=== PATIENT | female | born 1970 | race Caucasian/White ===

== ENCOUNTER 2017-12-25 08:10 | Emergency (ER) | payer BC ==
[2017-12-25 08:24] VITALS: BP 122/82
--- NOTE | 2017-12-25 08:37 | ED ---
Throat Pain/Nasal Congestion - HPI Summary HPI Summary: 47 yr old female with the complaint of sinus pressure frontal and maxillary, post nasal drip and cough. Onset a few days ago. Denies fever, chills. Left ear also bothering her. No other complaints. 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 - History of Current Complaint Chief Complaint: UCRespiratory Time Seen by Provider: 12/25/17 08:22 - Allergies/Home Medications Allergies/Adverse Reactions: Allergies Allergy/AdvReac Type Severity Reaction Status Date / Time aspirin Allergy Hives Verified 12/25/17 08:15 PMH/Surg Hx/FS Hx/Imm Hx Respiratory History: Reports: Hx Asthma - Surgical History Surgery Procedure, Year, and Place: APPY. ablation Infectious Disease History: No Infectious Disease History: Denies: Traveled Outside the [place] in Last 30 Days - Family History Known Family History: Positive: Hypertension - Social History Occupation: Employed Full-time Lives: With Family Alcohol Use: None Substance Use Type: Reports: None Smoking Status (MU): Former Smoker Review of Systems Constitutional: Negative Positive: Ear Ache, Nasal Discharge Positive: Cough All Other Systems Reviewed And Are Negative: Yes Physical Exam Triage Information Reviewed: Yes Vital Signs On Initial Exam: Initial Vitals Temp Pulse Resp BP Pulse Ox 99 F 78 15 122/82 99 12/25/17 08:21 12/25/17 08:21 12/25/17 08:21 12/25/17 08:21 12/25/17 08:21 Vital Signs Reviewed: Yes Appearance: Positive: Well-Appearing, No Pain Distress Skin: Positive: Warm Head/Face: Positive: Normal Head/Face Inspection Eyes: Positive: EOMI ENT: Positive: Pharyngeal erythema, Nasal congestion, TMs normal, Sinus tenderness. Negative: Muffled voice, Hoarse voice Neck: Positive: Nontender Respiratory/Lung Sounds: Positive: Clear to Auscultation, Breath Sounds Present Cardiovascular: Positive: RRR. Negative: Murmur Abdomen Description: Positive: Nontender Musculoskeletal: Positive: Strength/ROM Intact Neurological: Positive: Sensory/Motor Intact, Alert, Oriented to Person Place, Time, CN Intact II-III Psychiatric: Positive: Normal - Chanelle Coma Scale Best Eye Response: 4 - Spontaneous Best Motor Response: 6 - Obeys Commands Best Verbal Response: 5 - Oriented Coma Scale Total: 15 Diagnostics - Vital Signs Vital Signs Temp Pulse Resp BP Pulse Ox 12/25/17 08:21 99 F 78 15 122/82 99 - Laboratory Lab Statement: Any lab studies that have been ordered have been reviewed, and results considered in the medical decision making process. EENT Course/Dx - Course Course Of Treatment: 47 yr old with sinusitis. Rx Augmentin. - Diagnoses Provider Diagnoses: Sinusitis Discharge - Sign-Out/Discharge Documenting (check all that apply): Discharge/Admit/Transfer - Discharge Plan Condition: Good Disposition: HOME Prescriptions: Amoxicillin/Clavulanate TAB* [Augmentin TAB 875*] 875 mg PO BID #20 tab Patient Education Materials: Sinusitis (ED) Forms: *Work Release Referrals: Joi Buckner MD [Primary Care Provider] - 2 Days - Billing Disposition and Condition Condition: GOOD Disposition: HOME
== END 2017-12-25 08:43 | disposition home or self-care (01) ==
LOC: UCCORT 08:10
DX: J32.9 Chronic sinusitis, unspecified (principal); Z87.891 Personal history of nicotine dependence; Z88.6 Allergy status to analgesic agent
CPT/HCPCS: 99212; G0463

== ENCOUNTER 2018-08-14 11:11 | Emergency (ER) | payer BC ==
[2018-08-14 11:25] VITALS: BP 141/98
[2018-08-14] MEDS ORDERED: Ipratropium 0.5MG/2.5ML NEB* 0.5 MG/2.5 ML NEB.SOLN INH ONE (12:11)
[2018-08-14] MEDS ORDERED: Albuterol 2.5 MG/3 ML NEB.SOL* (0.083%) INH ONE (12:11)
--- NOTE | 2018-08-14 12:12 | UC ---
Respiratory Complaint HPI - HPI Summary HPI Summary: The patient is a 48-year-old female with a 6 day history of progressively worsening nasal congestion cough chest tightness and wheezing.'s a history of asthma. She may be running fevers at times. - History of Current Complaint Chief Complaint: UCGeneralIllness Stated Complaint: CHEST CONGESTION Time Seen by Provider: 08/14/18 11:55 Hx Obtained From: Patient Hx Last Menstrual Period: 09/20/12 Onset/Duration: Gradual Onset, Lasting Days Timing: Constant Severity Initially: Mild Severity Currently: Moderate Pain Intensity: 6 Pain Scale Used: 0-10 Numeric Character: Cough: Productive Aggravating Factors: Exertion, Deep Breaths Alleviating Factors: Bronchodilator Associated Signs And Symptoms: Positive: Pleuritic Chest Pain, Hemoptysis, Nasal Congestion, Hoarseness, Sinus Discomfort - Allergies/Home Medications Allergies/Adverse Reactions: Allergies Allergy/AdvReac Type Severity Reaction Status Date / Time aspirin Allergy Hives Verified 12/25/17 08:15 Home Medications: Home Medications Allergy Shots 08/14/18 [History] PMH/Surg Hx/FS Hx/Imm Hx Previously Healthy: Yes Respiratory History: Asthma, Bronchitis, Pneumonia - Surgical History Surgical History: Yes Surgery Procedure, Year, and Place: APPY. ablation - Family History Known Family History: Positive: Hypertension - Social History Alcohol Use: None Substance Use Type: None Smoking Status (MU): Former Smoker When Did the Patient Quit Smoking/Using Tobacco: 27 years ago - Immunization History Most Recent Influenza Vaccination: 05/28/16 Review of Systems All Other Systems Reviewed And Are Negative: Yes Constitutional: Positive: Fever, Chills Skin: Positive: Negative Eyes: Positive: Negative ENT: Positive: Nasal Discharge, Sinus Congestion, Sinus Pain/Tenderness Respiratory: Positive: Cough Cardiovascular: Positive: Negative Gastrointestinal: Positive: Negative Genitourinary: Positive: Negative Motor: Positive: Negative Neurovascular: Positive: Negative Musculoskeletal: Positive: Myalgia Neurological: Positive: Negative Psychological: Positive: Negative Physical Exam Triage Information Reviewed: Yes Appearance: No Pain Distress, Well-Nourished, Ill-Appearing Vital Signs: Initial Vital Signs Temp 99.1 F 08/14/18 11:22 Pulse 84 08/14/18 11:22 Resp 18 08/14/18 11:22 BP 141/98 08/14/18 11:22 Pulse Ox 99 08/14/18 11:22 Vital Signs Reviewed: Yes Eyes: Positive: Conjunctiva Clear ENT: Positive: Pharyngeal erythema, Nasal congestion, Nasal drainage, TMs normal. Negative: Tonsillar swelling, Tonsillar exudate, Sinus tenderness Neck: Positive: Supple, Nontender, No Lymphadenopathy Respiratory: Positive: No respiratory distress, No accessory muscle use, Wheezing Cardiovascular: Positive: RRR, No Murmur Musculoskeletal: Positive: ROM Intact, No Edema Neurological: Positive: Alert Psychological Exam: Normal Skin Exam: Normal UC Diagnostic Evaluation - Laboratory O2 Sat by Pulse Oximetry: 99 - normal not hypoxic Diagnostic Studies Comment: influ - - Radiology Radiology Interpretation Completed By: Radiologist Summary of Radiographic Findings: nad Re-Evaluation - Re-Evaluation First Eval Re-Evaluation Time: 13:00 Change: Improved - still wheezing but better air movement Respiratory Course/Dx - Differential Dx/Diagnosis Provider Diagnosis: Acute bronchitis with bronchospasm Discharge - Sign-Out/Discharge Documenting (check all that apply): Patient Departure All imaging exams completed and their final reports reviewed: Yes - Discharge Plan Condition: Stable Disposition: HOME Prescriptions: predniSONE [Deltasone 20 MG TAB] 40 mg PO DAILY #8 tab Patient Education Materials: Bronchospasm (ED) Referrals: Joi Buckner MD [Primary Care Provider] - 3 Days (if not better) Additional Instructions: recheck for worsening symptoms use neb as directed - Billing Disposition and Condition Condition: STABLE Disposition: Home
[2018-08-14] MEDS ORDERED: predniSONE TAB* 20 MG PO ONE (12:58)
== END 2018-08-14 13:04 | disposition home or self-care (01) ==
LOC: UCCORT 11:11
DX: J20.9 Acute bronchitis, unspecified (principal); Z88.6 Allergy status to analgesic agent; Z87.891 Personal history of nicotine dependence
CPT/HCPCS: 71046; 99212; G0463; J7512

== ENCOUNTER 2019-08-08 15:57 | Emergency (ER) | payer BC ==
--- OUTSIDE RECORDS SUMMARY | 2019-08-08 17:11 | XMS REPORT | Continuity of Care Document ---
:1970 External Reference #:[id number] Author Name CA Zendejas (transmitted by agent of provider Martinez Espinoza) Address [address] [place] [address] Care Team Providers Name Role Phone Joi Buckner MD - Family Care Team Information Rn Support Services Medicine Problems Active Problems Provider Date Candidiasis of mouth DAXA Meek Onset: 09/15/2018 Uncomplicated moderate persistent Martinez Espinoza MD Onset: 02/22/2018 asthma Allergic rhinitis Martinez Espinoza MD Onset: 02/22/2018 Allergic rhinitis due to pollen Martinez Espinoza MD Onset: 02/22/2018 Social History Type Date Description Comments Sex Unknown Tobacco Use Start: Unknown End: Patient is a former smoker quit 30 years ago Unknown Smoking Status Reviewed: 08/01/19 Patient is a former smoker quit 30 years ago Allergies, Adverse Reactions, Alerts Active Allergies Reaction Severity Comments Date Aspirin 02/22/2018 Medications Active Medications SIG Qnty Indications Ordering Provider Date Benzonatate one table three 60caps J30.89 Martinez Lowery 08/01/2019 100mg times daily as MD Alexis Capsules needed for cough Prednisone 6 tablets (30 60tabs J30.89 Prakashopher A. 08/01/2019 5mg Tablets mg) by mouth MD Alexis twice a day x 5 days Mucinex take 2 tablet 60tabs J30.89 Martinez A. 08/01/2019 600mg Tablets by mouth twice MD Alexis ER 12HR a day as needed Cetirizine HCL take one tablet 30tabs Aviva Heck NP 03/10/2018 10mg by mouth every Tablets day at bedtime Mometasone Furoate instill 2 17gm J30.1 Martinez Lowery 02/22/2018 sprays into MD Alexis 50mcg/Act Suspension each nostril once daily Breo Ellipta inhale one puff 1units J30.1 opher A. 02/22/2018 once a day MD Alexis 200-25mcg/Inh Aerosol Proair HFA 2 puffs every 4 8.500gm J30.1 opher A. 02/22/2018 108(90Base) as needed MD Alexis mcg/Act Aerosol Omeprazole 1 by mouth Unknown 40mg every day Capsules DR Amitriptyline HCL 3 tabs (30 mg) Unknown 10mg Tablets Magnesium 27 Unknown 500(27Mg) mg Tablets Vitamin B-12 ER 1 by mouth Unknown 1000mcg every day Tablets ER Albuterol Sulfate 1 vial every 4h Unknown as needed (2.5mg/3ML) 0.083% Nebulizer Sumatriptan Succinate as needed. Unknown 50mg Tablets Vitamin C Unknown W/Vitamin E [id number] Capsules Centrum Silver Adult Unknown 50+ Adult 50 Tablets Medications Administered in Office Medication SIG Qnty Indications Ordering Provider Date Allergy Injection 2 Or More Martinez Espinoza MD 07/25/2019 Injection Allergy Injection 2 Or More Martinez Espinoza MD 07/13/2019 Injection Allergy Injection 2 Or More Martinez Espinoza MD 06/29/2019 Injection Allergy Injection 2 Or More Martinez Espinoza MD 06/15/2019 Injection Allergy Injection 2 Or More Martinez Espinoza MD 06/01/2019 Injection Allergy Injection 2 Or More Martinez Espinoza MD 05/18/2019 Injection Allergy Injection 2 Or More Martinez Espinoza MD 05/04/2019 Injection Allergy Injection 2 Or More Martinez Espinoza MD 04/20/2019 Injection Allergy Injection 2 Or More Martinez Espinoza MD 04/06/2019 Injection Allergy Injection 2 Or More Martinez Espinoza MD 03/23/2019 Injection Allergy Injection 2 Or More Martinez Espinoza MD 03/09/2019 Injection Allergy Injection 2 Or More Martinez Espinoza MD 02/23/2019 Injection Allergy Injection 2 Or More Martinez Espinoza MD 02/16/2019 Injection Allergy Injection 2 Or More Martinez Espinoza MD 02/09/2019 Injection Allergy Injection 2 Or More Martinez Espinoza MD 02/02/2019 Injection Allergy Injection 2 Or More Martinez Espinoza MD 01/26/2019 Injection Allergy Injection 2 Or More Martinez Espinoza MD 01/19/2019 Injection Allergy Injection 2 Or More Martinez Espinoza MD 01/12/2019 Injection Allergy Injection 2 Or More Martinez Espinoza MD 01/05/2019 Injection Allergy Injection 2 Or More Martinez Espinoza MD 12/29/2018 Injection Allergy Injection 2 Or More Martinez Espinoza MD 12/22/2018 Injection Allergy Injection 2 Or More Martinez Espinoza MD 12/15/2018 Injection Allergy Injection 2 Or More Martinez Espinoza MD 12/08/2018 Injection Allergy Injection 2 Or More Martinez Espinoza MD 12/01/2018 Injection Allergy Injection 2 Or More Martinez Espinoza MD 11/24/2018 Injection Allergy Injection 2 Or More Martinez Espinoza MD 11/17/2018 Injection Allergy Injection 2 Or More Martinez Espinoza MD 11/10/2018 Injection Allergy Injection 2 Or More Martinez Espinoza MD 11/03/2018 Injection Allergy Injection 2 Or More Martinez Espinoza MD 10/27/2018 Injection Allergy Injection 2 Or More Martinez Espinoza MD 10/20/2018 Injection Allergy Injection 2 Or More Martinez Espinoza MD 10/13/2018 Injection Allergy Injection 2 Or More Martinez Espinoza MD 10/06/2018 Injection Allergy Injection 2 Or More Martinez Espinoza MD 09/29/2018 Injection Allergy Injection 2 Or More Martinez Espinoza MD 09/22/2018 Injection Allergy Injection 2 Or More Martinez Espinoza MD 09/15/2018 Injection Allergy Injection 2 Or More Martinez Espinoza MD 09/08/2018 Injection Allergy Injection 2 Or More Martinez Espinoza MD 08/25/2018 Injection Allergy Injection 2 Or More Martinez Espinoza MD 08/04/2018 Injection Allergy Injection 2 Or More Martinez Espinoza MD 07/19/2018 Injection Allergy Injection 2 Or More Martinez Espinoza MD 06/30/2018 Injection Allergy Injection 2 Or More Martinez Espinoza MD 06/16/2018 Injection Allergy Injection 2 Or More Martinez Espinoza MD 06/02/2018 Injection Allergy Injection 2 Or More Martinez Espinoza MD 05/19/2018 Injection Allergy Injection 2 Or More Martinez Espinoza MD 05/05/2018 Injection Allergy Injection 2 Or More Martinez Espinoza MD 04/21/2018 Injection Allergy Injection 2 Or More Martinez Espinoza MD 04/07/2018 Injection Allergy Injection 2 Or More Martinez Espinoza MD 03/31/2018 Injection Allergy Injection 2 Or More Martinez Espinoza MD 03/24/2018 Injection Allergy Injection 2 Or More Martinez Espinoza MD 03/17/2018 Injection Allergy Injection 2 Or More Injection 1 03/17/2018 Injection Immunizations Description No Information Available Vital Signs Date Vital Result Comment 08/01/2019 1:02pm BP Systolic 138 mmHg BP Diastolic 88 mmHg Height 61 inches 5'1" Weight 144.00 lb BMI (Body Mass Index) 27.2 kg/m2 Heart Rate 71 /min Respiratory Rate 16 /min Body Temperature 97.5 F O2 % BldC Oximetry 99 % 03/16/2019 2:11pm BP Systolic 102 mmHg BP Diastolic 74 mmHg Height 61 inches 5'1" Weight 144.00 lb BMI (Body Mass Index) 27.2 kg/m2 Heart Rate 69 /min Respiratory Rate 16 /min Body Temperature 97.6 F O2 % BldC Oximetry 96 % Results Description No Information Available Procedures Date Code Description Status 07/25/2019 26737 Allergy Injection 2 Or More Completed 07/13/2019 84782 Allergy Injection 2 Or More Completed 06/29/2019 38073 Allergy Injection 2 Or More Completed 06/15/2019 60392 Allergy Injection 2 Or More Completed 06/01/2019 35392 Allergy Injection 2 Or More Completed 05/18/2019 98766 Allergy Injection 2 Or More Completed 05/04/2019 05179 Allergy Injection 2 Or More Completed 04/20/2019 12055 Allergy Injection 2 Or More Completed 04/06/2019 01800 Allergy Injection 2 Or More Completed 03/27/2019 14841 Allergy Antigens Single Or Multiple Completed 03/23/2019 32450 Allergy Injection 2 Or More Completed 03/16/2019 23820 Nitric Oxide Gas Determination Completed 03/16/2019 45508 Bronchodilation Responsiveness Spirometry Pre/Post Completed Bronchodil Adm 03/09/2019 34729 Allergy Injection 2 Or More Completed 02/23/2019 61596 Allergy Injection 2 Or More Completed 02/16/2019 55203 Allergy Injection 2 Or More Completed 02/09/2019 56272 Allergy Injection 2 Or More Completed 02/02/2019 52070 Allergy Injection 2 Or More Completed Medical Devices Description No Information Available Encounters Type Date Location Provider Dx Diagnosis Office Visit 08/01/2019 CA Loza J45.40 Moderate persistent 1:00p asthma, uncomplicated J30.1 Allergic rhinitis due to pollen J30.89 Other allergic rhinitis Office Visit 03/16/2019 2:30p Parmjit Lara J45.40 Moderate persistent Fenstermacher, RPA-C asthma, uncomplicated J30.1 Allergic rhinitis due to pollen J30.89 Other allergic rhinitis Assessments Date Code Description Provider 08/01/2019 J45.40 Moderate persistent asthma, CA Zendejas uncomplicated 08/01/2019 J30.1 Allergic rhinitis due to pollen CA Zendejas 08/01/2019 J30.89 Other allergic rhinitis CA Znedejas 07/25/2019 J45.40 Moderate persistent asthma, Martinez Espinoza MD uncomplicated 07/25/2019 J30.1 Allergic rhinitis due to pollen Martinez Espinoza MD 07/25/2019 J30.89 Other allergic rhinitis Martinez Espinoza MD 07/13/2019 J45.40 Moderate persistent asthma, Martinez Espinoza MD uncomplicated 07/13/2019 J30.1 Allergic rhinitis due to pollen Martinez Espinoza MD 07/13/2019 J30.89 Other allergic rhinitis Martinez Espinoza MD 06/29/2019 J45.40 Moderate persistent asthma, Martinez Espinoza MD uncomplicated 06/29/2019 J30.1 Allergic rhinitis due to pollen Martinez Espinoza MD 06/29/2019 J30.89 Other allergic rhinitis Martinez Espinoza MD 06/15/2019 J45.40 Moderate persistent asthma, Martinez Espinoza MD uncomplicated 06/15/2019 J30.1 Allergic rhinitis due to pollen Martinez Espinoza MD 06/15/2019 J30.89 Other allergic rhinitis Martinez Espinoza MD 06/01/2019 J45.40 Moderate persistent asthma, Martinez Espinoza MD uncomplicated 06/01/2019 J30.1 Allergic rhinitis due to pollen Martinez Espinoza MD 06/01/2019 J30.89 Other allergic rhinitis Martinez Espinoza MD 05/18/2019 J45.40 Moderate persistent asthma, Martinez Espinoza MD uncomplicated 05/18/2019 J30.1 Allergic rhinitis due to pollen Martinez Espinoza MD 05/18/2019 J30.89 Other allergic rhinitis Martinez Espinoza MD 05/04/2019 J45.40 Moderate persistent asthma, Martinez Espinoza MD uncomplicated 05/04/2019 J30.1 Allergic rhinitis due to pollen Martinez Espinoza MD 05/04/2019 J30.89 Other allergic rhinitis Martinez Espinoza MD 04/20/2019 J45.40 Moderate persistent asthma, Martinez Espinoza MD uncomplicated 04/20/2019 J30.1 Allergic rhinitis due to pollen Martinez Espinoza MD 04/20/2019 J30.89 Other allergic rhinitis Martinez Espinoza MD 04/06/2019 J45.40 Moderate persistent asthma, Martinez Espinoza MD uncomplicated 04/06/2019 J30.1 Allergic rhinitis due to pollen Martinez Espinoza MD 04/06/2019 J30.89 Other allergic rhinitis Martinez Espinoza MD 03/27/2019 J30.1 Allergic rhinitis due to pollen Martinez Espinoza MD 03/27/2019 J30.89 Other allergic rhinitis Mratinez Espinoza MD 03/23/2019 J45.40 Moderate persistent asthma, Martinez Espinoza MD uncomplicated 03/23/2019 J30.1 Allergic rhinitis due to pollen Martinez Espinoza MD 03/23/2019 J30.89 Other allergic rhinitis Martinez Espinoza MD 03/16/2019 J45.40 Moderate persistent asthma, DAXA Meek uncomplicated 03/16/2019 J30.1 Allergic rhinitis due to pollen Cata Avery RPA -C 03/16/2019 J30.89 Other allergic rhinitis Cata Avery, JOSÉ MIGUEL-C 03/09/2019 J45.40 Moderate persistent asthma, Martinez Espinoza MD uncomplicated 03/09/2019 J30.1 Allergic rhinitis due to pollen Martinez Espinoza MD 03/09/2019 J30.89 Other allergic rhinitis Martinez Espinoza MD 02/23/2019 J45.40 Moderate persistent asthma, Martinez Espinoza MD uncomplicated 02/23/2019 J30.1 Allergic rhinitis due to pollen Martinez Espinoza MD 02/23/2019 J30.89 Other allergic rhinitis Martinez Espinoza MD 02/16/2019 J45.40 Moderate persistent asthma, Martinez Espinoza MD uncomplicated 02/16/2019 J30.1 Allergic rhinitis due to pollen Martinez Espinoza MD 02/16/2019 J30.89 Other allergic rhinitis Martinez Espinoza MD 02/09/2019 J45.40 Moderate persistent asthma, Martinez Espinoza MD uncomplicated 02/09/2019 J30.1 Allergic rhinitis due to pollen Martinez Espinoza MD 02/09/2019 J30.89 Other allergic rhinitis Martinez Espinoza MD 02/02/2019 J45.40 Moderate persistent asthma, Martinez Espinoza MD uncomplicated 02/02/2019 J30.1 Allergic rhinitis due to pollen Martinez Espinoza MD 02/02/2019 J30.89 Other allergic rhinitis Martinez Espinoza MD Plan of Treatment Future Appointment(s):08/03/2019 1:55 pm - Injection 1 at [facility]/16/2020 2 :00 pm - Cata Avery RPA-C at [facility]22/03/2019 - CA ZendejasJ45.40 Moderate persistent asthma, [id number] Allergic rhinitis due to pusuolM45.89 Other allergic rhinitisNew Medication:Benzonatate 100 mg - one table three times daily as needed for coughPrednisone 5 mg - 6 tablets (30 mg) by mouth twice a day x 5 daysMucinex 600 mg - take 2 tablet by mouth twice a day as neededComments:Patient has a URI. Patient to take prednisone as prescribed for 5 days. Patient to use benzonatate, as prescribed, for breakthrough coughing. Patient can also use warm salt water gargles to help sore throat and also decrease cough by decreasing postnasal drip. Patient can also use honey in traditional medicine tea such as 'Throat Coat' to help relieve coughing. Patient to use Mucinex, as needed,to help thin and facilitate removal of thick mucus. Patient to consume plenty of clear fluids and rest. Patient will contact this office if not feeling better in 5 days for further instructions. Patient to continue her allergy immunotherapy injections when feeling better. Functional Status Description No Information Available Mental Status Description No Information Available Referrals Description No Information Available
[2019-08-08] MEDS ORDERED: Acetaminophen TAB* 325 MG PO ONE (17:19)
[2019-08-08 17:23] VITALS: BP 113/89
--- NOTE | 2019-08-08 17:57 | UC ---
Respiratory Complaint HPI - HPI Summary HPI Summary: 49yo female presenting with sore throat, nasal congestion, and nonproductive mild cough x7 days. Patient states she was seen by pcp last week and they gave prednisone and tessalon perles for cough. Patient states no resolution of symptoms and since wednesday has worsening sinus pain, "face pressure," headache, and L ear pain. Patient also notes feeling warm, and notes bodyaches. Denies SOB and wheezing. Denies n/v/d and abdominal pain. Denies neck pain. Does note she has been exposed to strep throat and the flu at work. Notes decreased appetite but maintaining fluids. Has not taken anything for fever or pain relief today. - History of Current Complaint Chief Complaint: UCRespiratory Stated Complaint: HEADACHE,SORE THROAT, BODY ACHES Hx Obtained From: Patient Hx Last Menstrual Period: uterine ablation Onset/Duration: Gradual Onset, Lasting Days Pain Intensity: 8 - Allergies/Home Medications Allergies/Adverse Reactions: Allergies Allergy/AdvReac Type Severity Reaction Status Date / Time aspirin Allergy Hives Verified 08/08/19 17:10 Home Medications: Home Medications Benzonatate CAP* [Tessalon 100 MG CAP*] 100 mg PO TID PRN 08/08/19 [History Confirmed 08/08/19] guaiFENesin ER TAB [Mucinex*] 600 mg PO BID PRN 08/08/19 [History Confirmed 06/17] PMH/Surg Hx/FS Hx/Imm Hx - Surgical History Surgical History: Yes Surgery Procedure, Year, and Place: APPY. ablation - Family History Known Family History: Positive: Hypertension - Social History Alcohol Use: Rare Substance Use Type: None Smoking Status (MU): Former Smoker When Did the Patient Quit Smoking/Using Tobacco: 27 years ago - Immunization History Most Recent Influenza Vaccination: 05/28/16 Review of Systems All Other Systems Reviewed And Are Negative: Yes Constitutional: Positive: Fever, Fatigue ENT: Positive: Sore Throat, Ear Ache - L ear pain, Sinus Congestion, Sinus Pain/ Tenderness Respiratory: Positive: Cough - mild nonproductive. Negative: Shortness Of Breath Cardiovascular: Positive: Negative. Negative: Chest Pain Gastrointestinal: Positive: Negative. Negative: Abdominal Pain, Vomiting, Nausea Musculoskeletal: Positive: Myalgia - generalized muscle aches Neurological: Positive: Headache - not worst Physical Exam Triage Information Reviewed: Yes Appearance: No Pain Distress, Well-Nourished, Ill-Appearing - cheeks flushed, tearful, lying on the table Vital Signs: Initial Vital Signs Temp 101 F 08/08/19 17:15 Pulse 90 08/08/19 17:15 Resp 18 08/08/19 17:15 BP 113/89 08/08/19 17:15 Pulse Ox 97 08/08/19 17:15 Lab Results 08/08/19 08/08/19 Range/Units 18:20 18:22 Influenza A (Rapid) Negative (Negative) Influenza B (Rapid) Negative (Negative) Group A Strep Rapid Negative (Negative) Vital Signs Reviewed: Yes Eyes: Positive: Conjunctiva Clear ENT: Positive: Hearing grossly normal, Pharyngeal erythema, Nasal congestion, Nasal drainage, TMs normal, Sinus tenderness - pain with palpation of maxillary sinuses, Uvula midline. Negative: Tonsillar swelling, Tonsillar exudate, Trismus, Muffled voice, Hoarse voice Neck exam: Normal Neck: Positive: Supple, Nontender, No Lymphadenopathy. Negative: Nuchal Rigidity Respiratory Exam: Normal Respiratory: Positive: Lungs clear, Normal breath sounds, No respiratory distress, No accessory muscle use. Negative: Crackles, Rhonchi, Stridor, Wheezing Cardiovascular Exam: Normal Cardiovascular: Positive: RRR Neurological Exam: Other - negative brudzinki and kernig signs Neurological: Positive: Alert Psychological: Positive: Age Appropriate Behavior Respiratory Course/Dx - Course Course Of Treatment: Negative rapid strep and flu negative. Patient received tylenol here for fever and pain relief. I treated for sinusitis with augmentin. Educated on viral illness and importance of rest and maintaining hydration. Instructed to continue with ibuprofen and tylenol for fever and pain relief. Instructed to follow up with pcp if symptoms persist longer than 7 days or go to ED with any new or worsening symptoms. Patient voiced understanding and agreed with treatment plan. - Differential Dx/Diagnosis Provider Diagnosis: Flu-like symptoms, Acute bacterial sinusitis Discharge ED - Sign-Out/Discharge Documenting (check all that apply): Patient Departure All imaging exams completed and their final reports reviewed: No Studies - Discharge Plan Condition: Stable Disposition: HOME Prescriptions: Amoxicillin/Clavulanate TAB* [Augmentin TAB 875*] 875 mg PO BID #14 tab Patient Education Materials: Sinusitis (ED), Viral Syndrome (ED) Referrals: Joi Buckner MD [Primary Care Provider] - If Needed Additional Instructions: Your strep and flu tests were negative today. Take Augmentin as prescribed for treatment of your sinus infection. Continue with ibuprofen and/or tylenol as directed for fever and pain relief. Increase your fluid intake and get plenty of rest. Follow up with your primary care provider if your symptoms do not resolve within 7 days. Go to the emergency room with any new or worsening symptoms, including fever higher than 103. - Billing Disposition and Condition Condition: STABLE Disposition: Home
[2019-08-08 18:33] LABS: Influenza A Molecular NEGATIVE (Negative); Influenza B Molecular NEGATIVE (Negative)
== END 2019-08-08 19:06 | disposition home or self-care (01) ==
LOC: UCCORT 15:57
DX: J01.90 Acute sinusitis, unspecified (principal); R53.83 Other fatigue; B96.89 Other specified bacterial agents as the cause of diseases classified elsewhere; Z88.6 Allergy status to analgesic agent; Z87.891 Personal history of nicotine dependence
CPT/HCPCS: 87651; 99212; A9270-GY; G0463